=== PATIENT | female | born 1945 | race Caucasian/White ===

== ENCOUNTER 2018-10-01 12:23 | Inpatient (IN) | payer OTHER ==
[~2018-10-01] VITALS: Ht 160 cm; Wt 95.3 kg
[2018-10-01] VITALS (33 sets, daily range): BP systolic 109–186; BP diastolic 65–96
[2018-10-01] MEDS ORDERED: VANCOMYCIN 1 G PREMIX 200 ML IV STA (13:03)
[2018-10-01] MEDS ORDERED: CEFEPIME 1,000 MG in DEXTROSE 5% WATER 50 ML IV STA (13:03)
[2018-10-01] MEDS ORDERED: MAGNESIUM 2 G PREMIX 50 ML IV ONE (13:15)
[2018-10-01 13:30] LABS: BASOPHILS % 0.8 % (0.0-2.0); CHLORIDE 107 mEq/L (98-107); EOSINOPHILS % 3.8 % (0.0-5.0); HEMOGLOBIN. 11.1 g/dL (12.0-16.0); INR 1.3; LYMPHOCYTES % 39.9 % (20.0-50.0); MEAN CORPUSCULAR HEMOGLOBIN 26.8 pg (28.0-32.0); MEAN CORPUSCULAR VOLUME 86.8 fL (81.0-99.0); MEAN PLATELET VOLUME 9.4 fl (7.4-10.4); MONOCYTES % 4.5 % (2.0-8.0); PLATELET 230 x1000/uL (130-400); RED BLOOD CELL COUNT 4.14 mill/uL (4.2-5.4); RED CELL DISTRIBUTION WIDTH 15.6 % (11.6-14.6)
[2018-10-01 13:39] LABS: ETHANOL BLOOD < 10 mg/dL
[2018-10-01 13:44] LABS: CLARITY URINE CLOUDY (CLEAR); COLOR URINE YELLOW (YELLOW); KETONES URINE NEGATIVE (NEGATIVE); LEUKOCYTE ESTERASE URINE NEGATIVE (NEGATIVE); NITRITE URINE NEGATIVE (NEGATIVE); OCCULT BLOOD URINE 2+ (NEGATIVE); PROTEIN URINE 4+ (NEGATIVE); SPECIFIC GRAVITY URINE 1.012 (1.005-1.030)
[2018-10-01] MEDS ORDERED: INSULIN REGULAR (DRIP) 100 UNITS in SODIUM CHLORIDE 0.9% 100 ML IV SCH (13:52)
[2018-10-01 13:55] LABS: *AMPHETAMINES SCREEN URINE NEGATIVE (NEGATIVE); *BARBITURATES SCREEN URINE NEGATIVE (NEGATIVE); *BENZODIAZEPINES SCREEN URINE NEGATIVE (NEGATIVE); *COCAINE SCREEN URINE NEGATIVE (NEGATIVE); CANNABINOID URINE SCREEN NEGATIVE (NEGATIVE); METHADONE URINE SCREEN NEGATIVE (NEGATIVE); OPIATES URINE SCREEN NEGATIVE (NEGATIVE); PHENCYCLIDINE URINE SCREEN NEGATIVE (NEGATIVE)
[2018-10-01 13:58] LABS: BG CARBOXYHEMOGLOBIN 0.4 % (0.5-1.5); BG DEOXYHEMOGLOBIN 23.4 % (0.0-5.0); BG METHEMOGLOBIN 0.3 % (0.0-1.5); BG OXYGEN SATURATION 76.4 % (92.0-98.5); BG OXYHEMOGLOBIN 75.9 % (94.0-97.0); BG PCO2 65.2 mmHg (35.0-45.0); BG PH 7.105 (7.350-7.450); BG PO2 56.2 mmHg (75.0-100.0); BG SAMPLE SITE RIGHT RADIAL; BG TIDAL VOLUME(mL) 500 mL; BG TOTAL HEMOGLOBIN 11.7 g/dL (12.0-18.0); BG VENT MODE VENT - A/C; BG VENT RATE 16 set
[2018-10-01] MEDS: PHENYTOIN SODIUM 100MG/2ML VIAL IV SCH ×3 (14:00→22:27)
[2018-10-01] MEDS ORDERED: IPRATROPIUM/ALBUTEROL 0.5-3(2.5)MG/3ML NEB HHN PRN (14:00)
[2018-10-01] MEDS ORDERED: NITROGLYCERIN 50MG PREMIX 250 ML IV PRN (14:00)
[2018-10-01] MEDS ORDERED: MEPERIDINE HCL/PF 25MG/ML CPJ IV PRN (14:00)
[2018-10-01] MEDS ORDERED: FENTANYL CITRATE/PF 500 MCG in SODIUM CHLORIDE 0.9% 40 ML IV PRN ×2 (14:00→15:15)
[2018-10-01] MEDS ORDERED: DEXTROSE 50% WATER 50ML SYRINGE IV PRN ×3 (14:00→14:15)
[2018-10-01] MEDS ORDERED: MIDAZOLAM HCL 100 MG in DEXT 5% WATER 80 ML IV PRN ×2 (14:00→15:15)
[2018-10-01] MEDS ORDERED: LEVETIRACETAM 500 MG in SODIUM CHLORIDE 0.9% 100 ML IV SCH (14:15)
[2018-10-01] MEDS ORDERED: ONDANSETRON HCL 4MG/2ML INJ IV PRN (14:15)
[2018-10-01] MEDS ORDERED: LEVETIRACETAM 1000MG/100ML 100 ML IV ONE (14:15)
[2018-10-01] MEDS ORDERED: PIPERACILLIN/TAZ 3.375G PREMIX 50 ML IV SCH (14:15)
[2018-10-01] MEDS ORDERED: LORAZEPAM 2MG/ML CPJ IV PRN (14:45)
[2018-10-01] MEDS ORDERED: PANTOPRAZOLE SODIUM 40 MG/VIAL IV NR (15:00)
[2018-10-01 15:16] LABS: BG CARBOXYHEMOGLOBIN 0.8 % (0.5-1.5); BG DEOXYHEMOGLOBIN 15.5 % (0.0-5.0); BG FRACTION INSPIRED OXYGEN 100; BG HCO3 ACT 21.2 mmol/L (22.0-26.0); BG METHEMOGLOBIN 0.3 % (0.0-1.5); BG OXYGEN SATURATION 84.3 % (92.0-98.5); BG OXYHEMOGLOBIN 83.4 % (94.0-97.0); BG PCO2 62.4 mmHg (35.0-45.0); BG PH 7.149 (7.350-7.450); BG PO2 61.5 mmHg (75.0-100.0); BG SAMPLE SITE RIGHT BRACHIAL; BG TIDAL VOLUME(mL) 550 mL; BG TOTAL HEMOGLOBIN 10.9 g/dL (12.0-18.0); BG VENT MODE VENT - A/C; BG VENT RATE 24 set
[2018-10-01] MEDS: PROPOFOL 10MG/ML 100ML 100 ML IV PRN ×2 (15:28→21:46)
[2018-10-01] MEDS ORDERED: SODIUM BICARBONATE 7.5% 0.9 MEQ/ML 50ML SYR IV ONE (15:40)
[2018-10-01] MEDS ORDERED: ATROPINE SULFATE 1MG/10ML SYR ONE (15:40)
[2018-10-01] MEDS ORDERED: ASPIRIN 81MG TABLET PO NR (15:40)
[2018-10-01] MEDS ORDERED: EPINEPHRINE 0.1MG/ML (1:10,000) 10ML SYR ONE (15:40)
[2018-10-01] MEDS ORDERED: ENOXAPARIN 80MG/0.8ML SYR SUBCUT NR (16:00)
[2018-10-01] MEDS: LEVETIRACETAM 500 MG in SODIUM CHLORIDE 0.9% 100 ML IV SCH ×2 (16:14→23:00)
[2018-10-01] MEDS: FUROSEMIDE 40MG/4ML VIAL IVP SCH ×2 (16:14→21:26)
[2018-10-01] MEDS: PIPERACILLIN/TAZ 3.375G PREMIX 50 ML IV SCH ×2 (16:16→22:27)
[2018-10-01] MEDS ORDERED: BLOOD SUGAR DIAGNOSTIC STRIP TEST SCH (16:30)
[2018-10-01] MEDS: BLOOD SUGAR DIAGNOSTIC STRIP TEST SCH ×7 (16:41→23:00)
[2018-10-01 16:42] LABS: CHLORIDE 112 mEq/L (98-107)
[2018-10-01 16:46] LABS: PHOSPHORUS 6.2 mg/dL (2.5-4.9)
[2018-10-01] MEDS ORDERED: INSULIN LISPRO 100 UNITS/ML SUBCUT SCH (17:00)
[2018-10-01] MEDS: IPRATROPIUM/ALBUTEROL 0.5-3(2.5)MG/3ML NEB HHN SCH (20:00)
[2018-10-01] MEDS: VANCOMYCIN 750 MG PREMIX 150 ML IV SCH (20:52)
[2018-10-01 22:14] LABS: CHLORIDE 113 mEq/L (98-107)
[2018-10-01 22:20] LABS: PHOSPHORUS 3.1 mg/dL (2.5-4.9)
[2018-10-01 22:56] LABS: CREATINE KINASE 662 IU/L (26-192); CREATINE KINASE MB FRACTION 13.2 ng/mL (0.5-3.6)
[2018-10-02] VITALS (63 sets, daily range): BP systolic 82–175; BP diastolic 44–85
[2018-10-02] MEDS: BLOOD SUGAR DIAGNOSTIC STRIP TEST SCH ×14 (01:00→13:55)
[2018-10-02] MEDS ORDERED: DOPAMINE 400MG PREMIX 250 ML IV PRN (02:00)
[2018-10-02] MEDS ORDERED: DOPAMINE 400MG PREMIX 250 ML IV ONE (02:02)
[2018-10-02] MEDS: PIPERACILLIN/TAZ 3.375G PREMIX 50 ML IV SCH (05:02)
[2018-10-02] MEDS: PHENYTOIN SODIUM 100MG/2ML VIAL IV SCH ×2 (06:47→13:56)
[2018-10-02] MEDS: LEVETIRACETAM 500 MG in SODIUM CHLORIDE 0.9% 100 ML IV SCH (08:24)
[2018-10-02] MEDS: FUROSEMIDE 40MG/4ML VIAL IVP SCH (08:24)
[2018-10-02] MEDS: PROPOFOL 10MG/ML 100ML 100 ML IV PRN (08:25)
[2018-10-02] MEDS ORDERED: PANTOPRAZOLE SODIUM 40 MG/VIAL IV SCH (09:00)
[2018-10-02] MEDS: VANCOMYCIN 750 MG PREMIX 150 ML IV SCH (09:10)
[2018-10-02] MEDS: IPRATROPIUM/ALBUTEROL 0.5-3(2.5)MG/3ML NEB HHN SCH (09:21)
[2018-10-02 09:41] LABS: HEMATOCRIT. 32.5 % (36.0-48.0); HEMOGLOBIN. 10.7 g/dL (12.0-16.0); MEAN CORPUSCULAR HEMOGLOBIN 26.3 pg (28.0-32.0); MEAN CORPUSCULAR VOLUME 79.8 fL (81.0-99.0); MEAN PLATELET VOLUME 9.7 fl (7.4-10.4); PLATELET 229 x1000/uL (130-400); RED BLOOD CELL COUNT 4.08 mill/uL (4.2-5.4); RED CELL DISTRIBUTION WIDTH 14.9 % (11.6-14.6)
[2018-10-02 09:46] LABS: INR 1.2; PARTIAL THROMBOPLASTIN TIME 36.1 sec (23.4-31.0); PROTHROMBIN TIME 11.8 sec (9.1-11.1)
[2018-10-02 09:50] LABS: CREATINE KINASE MB FRACTION 16.9 ng/mL (0.5-3.6)
[2018-10-02 11:22] LABS: BG BASE EXCESS -4.5 mmol/L (-2.0-2.0); BG CARBOXYHEMOGLOBIN 0.3 % (0.5-1.5); BG DEOXYHEMOGLOBIN 0.9 % (0.0-5.0); BG FRACTION INSPIRED OXYGEN 70; BG HCO3 ACT 17.4 mmol/L (22.0-26.0); BG METHEMOGLOBIN 0.2 % (0.0-1.5); BG OXYGEN SATURATION 99.1 % (92.0-98.5); BG OXYHEMOGLOBIN 98.6 % (94.0-97.0); BG PCO2 23.8 mmHg (35.0-45.0); BG PH 7.482 (7.350-7.450); BG SAMPLE SITE RIGHT BRACHIAL; BG TIDAL VOLUME(mL) 500 mL; BG TOTAL HEMOGLOBIN 11.6 g/dL (12.0-18.0); BG VENT MODE VENT - A/C; BG VENT RATE 24 set
[2018-10-02 11:47] LABS: PLATELET ESTIMATE NORMAL
[2018-10-02] MEDS ORDERED: PIPERACILLIN/TAZ 3.375G PREMIX 50 ML IV SCH (12:00)
[2018-10-02] MEDS ORDERED: MIDAZOLAM HCL 50 MG in DEXTROSE 5% WATER 40 ML IV PRN (13:15)
[2018-10-02] MEDS ORDERED: MORPHINE SULFATE 250 MG in DEXT 5% WATER 240 ML IV PRN (13:15)
[2018-10-02 13:22] LABS: CHLORIDE 105 mEq/L (98-107)
[2018-10-02 13:31] LABS: CREATINE KINASE 702 IU/L (26-192); CREATINE KINASE MB FRACTION 17.6 ng/mL (0.5-3.6); PHOSPHORUS 2.6 mg/dL (2.5-4.9)
== END 2018-10-02 16:05 | disposition expired | DRG 871 ==
LOC: ENRESERV 13:05 → EDBEDREQSVC 13:07 → EDBEDREQ 13:07 → EDBEDREQTM 13:07 → ER 13:36 → MICUSO 13:41 → EDBEDREQ 13:46 → EDBEDREQSVC 13:46 → EDBEDREQTM 13:46
PROVIDERS: ADMIT Internal Medicine; ATTEND Internal Medicine
PROC: 5A12012 Performance of Cardiac Output, Single, Manual (ICD-10-PCS; principal; 2018-10-01)
PROC: 0BH18EZ Insertion of Endotracheal Airway into Trachea, Via Natural or Artificial Opening Endoscopic (ICD-10-PCS; 2018-10-01)
PROC: 06HY33Z Insertion of Infusion Device into Lower Vein, Percutaneous Approach (ICD-10-PCS; 2018-10-01)
PROC: 5A1945Z Respiratory Ventilation, 24-96 Consecutive Hours (ICD-10-PCS; 2018-10-01)
PROC: 4A10X4Z Monitoring of Central Nervous Electrical Activity, External Approach (ICD-10-PCS; 2018-10-02)
DX: A41.9 Sepsis, unspecified organism (principal); J96.02 Acute respiratory failure with hypercapnia; E43 Unspecified severe protein-calorie malnutrition; G93.41 Metabolic encephalopathy; I50.43 Acute on chronic combined systolic (congestive) and diastolic (congestive) heart failure; G93.1 Anoxic brain damage, not elsewhere classified; E87.2 Acidosis; G40.919 Epilepsy, unspecified, intractable, without status epilepticus; I47.2 Ventricular tachycardia; E11.9 Type 2 diabetes mellitus without complications; I11.0 Hypertensive heart disease with heart failure; I25.5 Ischemic cardiomyopathy; I25.10 Atherosclerotic heart disease of native coronary artery without angina pectoris; J44.9 Chronic obstructive pulmonary disease, unspecified; E03.9 Hypothyroidism, unspecified; R00.1 Bradycardia, unspecified; E78.5 Hyperlipidemia, unspecified; E66.09 Other obesity due to excess calories; R57.0 Cardiogenic shock; R74.0 Nonspecific elevation of levels of transaminase and lactic acid dehydrogenase [LDH]; I44.7 Left bundle-branch block, unspecified; I08.0 Rheumatic disorders of both mitral and aortic valves; Z66 Do not resuscitate; D64.9 Anemia, unspecified; Z87.891 Personal history of nicotine dependence; Z95.5 Presence of coronary angioplasty implant and graft; Z68.37 Body mass index [BMI] 37.0-37.9, adult; I25.2 Old myocardial infarction
CPT/HCPCS: 31500; 36415; 36556; 36600; 43760; 71045; 80048; 80061; 80305; 82150; 82330; 82375; 82533; 82550; 82553; 82805; 82962; 83605; 83735; 84100; 84145; 84478; 84484; 86850; 86900; 87070; 92950; 93005; 93306; 94002; 94003; 94640; 99291; C9113; G0482; J0461; J0692; J1165; J1265; J1650; J1815; J1940; J1953; J2060; J2250; J2274; J2543; J2704; J3010; J3370; J3475; J3490; J7050; J7060; J7620